=== PATIENT | male | born 1940 | race Caucasian/White ===

== ENCOUNTER 2016-11-24 20:30 | Emergency (ER) | payer MEDICARE ==
[~2016-11-24] VITALS: Ht 172.7 cm; Wt 95.3 kg
[2016-11-24 22:28] LABS: MEAN CORPUSCULAR HGB 34.4 pg (27.0-31.0); MEAN CORPUSCULAR HGB CONC 34.4 g/dl (33.0-37.0); RED BLOOD COUNT 1.28 10*6/uL (4.50-5.90); RED CELL DISTRI WIDTH 14.2 % (0-14.5); WHITE BLOOD COUNT 3.4 10*3/uL (4.8-10.8)
[2016-11-24 22:32] LABS: HEMOGLOBIN 4.4 g/dl (14.0-18.0)
[2016-11-24 22:33] LABS: HEMATOCRIT 12.8 % (42.0-52.0); PLATELET COUNT AUTOMATED 7 10*3/uL (130-400)
[2016-11-24 22:44] LABS: ALBUMIN 2.6 gm/dl (3.1-4.5); BILIRUBIN, TOTAL 0.7 mg/dl (0.2-1.0); MAGNESIUM 1.8 mg/dL (1.5-2.1); POTASSIUM 3.7 mmol/L (3.5-5.1); TOTAL PROTEIN 7.3 gm/dL (6.4-8.2)
[2016-11-24 22:48] LABS: TROPONIN I 0.055 ng/ml (<0.045)
[2016-11-24 22:58] LABS: INTERNATIONAL NORM RATIO 1.3 (2.0-3.5); PLATELET SUFFICIENCY LOW (NORMAL); PROTHROMBIN TIME 14.4 SECONDS (9.0-12.4); TOTAL CELLS COUNTED 100 #CELLS
[2016-11-24 22:59] LABS: OVALOCYTES FEW; POLYCHROMASIA SLIGHT
[2016-11-25 10:09] LABS: NEUTROPHILS 24 % (47-73)
[2016-11-25 10:11] LABS: BLASTS 14 % (0-0); LYMPHOCYTE # 1.3 10*3/uL (1.3-4.4); NEUTROPHIL # 0.8 10*3/uL (2.3-7.9)
[2016-11-25 10:12] LABS: MONOCYTE # 0.8 10*3/uL (0.1-1.0)
== END 2016-11-25 02:47 | disposition other institution (70) ==
LOC: ED 20:30
PROVIDERS: Student in an Organized Health Care Education/Training Program
DX: D64.9 Anemia, unspecified (principal); D69.6 Thrombocytopenia, unspecified